=== PATIENT | female | born 1930 | race African-American/Black ===

== ENCOUNTER 2020-07-16 10:46 | Inpatient (IN) | payer MEDICARE, MEDICAID ==
[~2020-07-16] VITALS: Ht 160 cm; Wt 54.4 kg
[2020-07-16] MEDS ORDERED: ASPI-1497 PO (11:15)
[2020-07-16] MEDS ORDERED: ATOR10TA69 MT (11:15)
[2020-07-16] MEDS ORDERED: BENA10TA74 MT (11:15)
[2020-07-16] MEDS ORDERED: AMLO10TA80 MT (11:15)
[2020-07-16] MEDS ORDERED: IBUP-2029 PO (11:15)
[2020-07-16] MEDS ORDERED: metoprolol PO (11:15)
[2020-07-16] MEDS ORDERED: FURO20TA4 MT (11:15)
[2020-07-16 11:43] LABS: BASOPHILS % 0.4 % (0.0-2.0); HEMATOCRIT. 39.9 % (36.0-48.0); HEMOGLOBIN. 13.2 g/dL (12.0-16.0); LYMPHOCYTES % 28.3 % (20.0-50.0); MEAN CORPUSCULAR HEMOGLOBIN 26.9 pg (28.0-32.0); MEAN CORPUSCULAR VOLUME 81.7 fL (81.0-99.0); MEAN PLATELET VOLUME 8.8 fl (7.4-10.4); MONOCYTES % 9.1 % (2.0-8.0); NEUTROPHILS % 62.2 % (40.0-76.0); PLATELET 125 x1000/uL (130-400); RED BLOOD CELL COUNT 4.88 mill/uL (4.2-5.4); RED CELL DISTRIBUTION WIDTH 14.8 % (11.6-14.6)
[2020-07-16 11:52] LABS: CHLORIDE 113 mEq/L (98-107)
[2020-07-16 14:15] LABS: CLARITY URINE CLOUDY (CLEAR); COLOR URINE YELLOW (YELLOW); KETONES URINE NEGATIVE (NEGATIVE); LEUKOCYTE ESTERASE URINE NEGATIVE (NEGATIVE); NITRITE URINE NEGATIVE (NEGATIVE); OCCULT BLOOD URINE TRACE (NEGATIVE); PH URINE 6.5 (4.5-8.0); PROTEIN URINE 3+ (NEGATIVE); SPECIFIC GRAVITY URINE 1.012 (1.005-1.030)
[2020-07-16] MEDS ORDERED: POTASSIUM CHLORIDE INJ 40 MEQ in DEXT 5% WATER 250 ML IV ONE (14:30)
[2020-07-16] MEDS ORDERED: IOHEXOL-350 100 ML BOTTLE ONE (15:58)
[2020-07-16] MEDS ORDERED: NA PHOS,M-B/NA PHOS,DI-BA ENEMA 118ML PR PRN (16:30)
[2020-07-16] MEDS ORDERED: ONDANSETRON HCL 4MG/2ML INJ IV PRN (16:30)
[2020-07-16] MEDS ORDERED: GUAIFENESIN 200MG/10ML SUGAR FREE UDC PO PRN (16:30)
[2020-07-16] MEDS ORDERED: MAGNESIUM/ALUMINUM HYDROXIDE/SIMETHICONE 30ML UDC PO PRN (16:30)
[2020-07-16 17:24] VITALS: BP 165/87
[2020-07-16] MEDS: ENOXAPARIN 40MG/0.4ML SYR SUBCUT SCH (18:26)
[2020-07-16] MEDS: ACETAMINOPHEN 325MG TABLET PO PRN (18:26)
[2020-07-16 20:00] VITALS: BP 139/90
[2020-07-16] MEDS: CLONIDINE 0.1MG TABLET PO PRN (23:52)
[2020-07-17] VITALS: BP 164/83
[2020-07-17 04:00] VITALS: BP 135/66
[2020-07-17] MEDS: ACETAMINOPHEN 325MG TABLET PO PRN ×2 (05:10→16:29)
[2020-07-17 07:30] LABS: BASOPHILS % 0.3 % (0.0-2.0); HEMATOCRIT. 36.8 % (36.0-48.0); HEMOGLOBIN. 12.3 g/dL (12.0-16.0); LYMPHOCYTES % 21.3 % (20.0-50.0); MEAN CORPUSCULAR VOLUME 80.6 fL (81.0-99.0); MEAN PLATELET VOLUME 9.7 fl (7.4-10.4); MONOCYTES % 7.1 % (2.0-8.0); NEUTROPHILS % 71.3 % (40.0-76.0); PLATELET 131 x1000/uL (130-400); RED BLOOD CELL COUNT 4.57 mill/uL (4.2-5.4); RED CELL DISTRIBUTION WIDTH 14.6 % (11.6-14.6)
[2020-07-17 07:45] LABS: CHLORIDE 109 mEq/L (98-107)
[2020-07-17 08:00] VITALS: BP 141/81
[2020-07-17] MEDS: ASPIRIN 81MG EC TABLET PO SCH (08:21)
[2020-07-17] MEDS ORDERED: POTASSIUM CHLORIDE 20MEQ/PACKET PO NR (11:15)
[2020-07-17 12:00] VITALS: BP 139/74
[2020-07-17 16:00] VITALS: BP 171/76
[2020-07-17] MEDS: ENOXAPARIN 40MG/0.4ML SYR SUBCUT SCH ×2 (17:08→17:09)
[2020-07-17 20:00] VITALS: BP 140/77
[2020-07-17] MEDS: CLONIDINE 0.1MG TABLET PO PRN (23:51)
[2020-07-18] VITALS: BP 161/71
[2020-07-18 04:00] VITALS: BP 130/76
[2020-07-18 06:06] LABS: CHLORIDE 110 mEq/L (98-107)
[2020-07-18 06:50] LABS: BASOPHILS % 0.3 % (0.0-2.0); HEMATOCRIT. 37.9 % (36.0-48.0); HEMOGLOBIN. 12.6 g/dL (12.0-16.0); LYMPHOCYTES % 16.9 % (20.0-50.0); MEAN CORPUSCULAR VOLUME 81.2 fL (81.0-99.0); MEAN PLATELET VOLUME 9.8 fl (7.4-10.4); MONOCYTES % 7.2 % (2.0-8.0); NEUTROPHILS % 75.6 % (40.0-76.0); PLATELET 124 x1000/uL (130-400); RED BLOOD CELL COUNT 4.67 mill/uL (4.2-5.4); RED CELL DISTRIBUTION WIDTH 14.5 % (11.6-14.6)
[2020-07-18 08:00] VITALS: BP 143/81
[2020-07-18] MEDS: ASPIRIN 81MG EC TABLET PO SCH (09:17)
[2020-07-18] MEDS: DEXAMETHASONE 4MG/ML 1ML VIAL IV SCH (11:36)
[2020-07-18 14:00] VITALS: BP 135/81
[2020-07-18 16:00] VITALS: BP 141/76
[2020-07-18] MEDS: ENOXAPARIN 40MG/0.4ML SYR SUBCUT SCH (17:23)
[2020-07-18 20:00] VITALS: BP 130/72
[2020-07-19] VITALS (7 sets, daily range): BP systolic 130–171; BP diastolic 59–100
[2020-07-19 06:13] LABS: CHLORIDE 114 mEq/L (98-107)
[2020-07-19 06:45] LABS: BASOPHILS % 0.1 % (0.0-2.0); HEMATOCRIT. 38.9 % (36.0-48.0); LYMPHOCYTES % 18.3 % (20.0-50.0); MEAN CORPUSCULAR VOLUME 80.6 fL (81.0-99.0); MEAN PLATELET VOLUME 9.8 fl (7.4-10.4); MONOCYTES % 8.5 % (2.0-8.0); NEUTROPHILS % 73.1 % (40.0-76.0); PLATELET 133 x1000/uL (130-400); RED BLOOD CELL COUNT 4.83 mill/uL (4.2-5.4); RED CELL DISTRIBUTION WIDTH 14.4 % (11.6-14.6)
[2020-07-19] MEDS: ASPIRIN 81MG EC TABLET PO SCH (08:24)
[2020-07-19] MEDS: DEXAMETHASONE 4MG/ML 1ML VIAL IV SCH (08:24)
[2020-07-19] MEDS: CLONIDINE 0.1MG TABLET PO PRN (14:32)
[2020-07-19] MEDS ORDERED: ENOXAPARIN 30MG/0.3ML SYR SUBCUT SCH (16:00)
[2020-07-20 04:00] VITALS: BP 165/79
[2020-07-20] MEDS: CLONIDINE 0.1MG TABLET PO PRN ×2 (05:11→14:18)
[2020-07-20] MEDS: ASPIRIN 81MG EC TABLET PO SCH (09:05)
[2020-07-20 12:00] VITALS: BP 170/79
[2020-07-20 13:16] VITALS: BP 132/60
[2020-07-20 14:33] LABS: T4 FREE 1.25 ng/dL (0.76-1.46)
== END 2020-07-20 16:35 | disposition home or self-care (01) | DRG 178 ==
LOC: ER 10:46 → 7WST 13:36 → ENRESERV 13:58 → CANRESERV 13:58 → ENRESERV 14:24 → SUPCPDRO 16:08
PROVIDERS: ADMIT Internal Medicine Nephrology; ATTEND Internal Medicine Nephrology
DX: U07.1 COVID-19 (principal); E44.1 Mild protein-calorie malnutrition; E87.0 Hyperosmolality and hypernatremia; I13.0 Hypertensive heart and chronic kidney disease with heart failure and stage 1 through stage 4 chronic kidney disease, or unspecified chronic kidney disease; N39.0 Urinary tract infection, site not specified; E78.5 Hyperlipidemia, unspecified; E86.0 Dehydration; E87.6 Hypokalemia; I50.9 Heart failure, unspecified; N18.30 Chronic kidney disease, stage 3 unspecified; Z68.21 Body mass index [BMI] 21.0-21.9, adult; Z79.899 Other long term (current) drug therapy; Z79.82 Long term (current) use of aspirin
CPT/HCPCS: 36415; 71045; 71275; 80048; 80053; 81003; 83880; 84439; 84443; 84481; 84484; 85025; 85379; 86140; 93005; 99285; J1100; J1650; J3480; J7060; Q9967; U0003